=== PATIENT | male | born 1990 | race Caucasian/White ===

== ENCOUNTER 2018-08-02 12:43 | Emergency (ER) | payer MEDICAID ==
[~2018-08-02] VITALS: Ht 188 cm; Wt 84.1 kg
[2018-08-02] MEDS ORDERED: normal saline 1000ML IV soln IVB ONE (12:55)
[2018-08-02] MEDS ORDERED: TETanus/Pertussis (Acell)/Diphther VAC/PF (Tdap-Adult) 0.5ml syringe IM ONE (12:55)
[2018-08-02] MEDS ORDERED: HYDROcodone/acetaminophen 5mg/325mg tablet PO ONE (12:55)
[2018-08-02] MEDS ORDERED: LORazepam 2 mg/ml vial IV ONE (12:55)
[2018-08-02] MEDS ORDERED: ceFAZolin 1GM/D5W- ADD-VANTAGE 50 ML IV ONE (13:00)
[2018-08-02] MEDS ORDERED: ketamine 10mg/ml 20ml inj IV ONE (13:00)
[2018-08-02] MEDS ORDERED: LIDOcaine 1.5% w/epinephrine 1:200,000 5ml ampul IJ ONE (14:00)
[2018-08-02] MEDS ORDERED: ondansetron/PF 4mg/2ml inj IV ONE (14:00)
[2018-08-02 14:32] VITALS: BP 173/113
[2018-08-02] MEDS ORDERED: CEPH500C5 PO (15:09)
== END 2018-08-02 16:26 | disposition home or self-care (01) ==
LOC: ER 12:44
DX: S71.112A Laceration without foreign body, left thigh, initial encounter (principal); Z88.5 Allergy status to narcotic agent; W19.XXXA Unspecified fall, initial encounter; Y93.89 Activity, other specified; Y92.89 Other specified places as the place of occurrence of the external cause; Y99.9 Unspecified external cause status
CPT/HCPCS: 12034; 73560; 90471; 90715; 96365; 96375; 99284; J0690; J2060; J2405; J3490

== ENCOUNTER 2022-01-06 23:13 | Emergency (ER) | payer MEDICAID ==
[~2022-01-06] VITALS: Ht 188 cm; Wt 81.8 kg
[2022-01-06 23:38] LABS: BASOPHILS # (AUTO) 0.1 X10'3 (0-0.2); BASOPHILS % (AUTO) 1.1 % (0-1); EOSINOPHILS # (AUTO) 0.1 X10'3 (0-0.9); EOSINOPHILS % (AUTO) 0.7 % (0-6); HEMATOCRIT 42.8 % (42.0-52.0); HEMOGLOBIN 14.1 g/dl (14.0-17.9); LYMPHOCYTES # (AUTO) 3.8 X10'3 (1.1-4.8); LYMPHOCYTES % (AUTO) 36.4 % (21-51); MEAN CORPUSCULAR HGB CONC 32.9 g/dL (33.0-36.5); MEAN CORPUSCULAR VOLUME 82.1 FL (78-98); MEAN PLATELET VOLUME 7.2 FL (7.4-10.4); MONOCYTES # (AUTO) 1.1 X10'3 (0-0.9); MONOCYTES % (AUTO) 10.4 % (2-12); NEUTROPHILS # (AUTO) 5.3 X10'3 (1.8-7.7); NEUTROPHILS % (AUTO) 51.4 % (42-75); PLATELET COUNT 312 X10'3 (140-440); RED BLOOD COUNT 5.21 X10'6 (4.70-6.10); RED CELL DISTRIBUTION WIDTH 17.1 % (11.5-14.5); WHITE BLOOD COUNT 10.4 X10'3 (4.5-11.0)
[2022-01-06 23:52] LABS: ALANINE AMINOTRANSFERASE 41 U/L (12-78); ALBUMIN 4.1 G/DL (3.4-5.0); ALBUMIN/GLOBULIN RATIO 1.1 (1.1-1.5); ALKALINE PHOSPHATASE 127 IU/L (46-116); ANION GAP 12 (8-16); ASPARTATE AMINO TRANSFERASE 22 U/L (10-37); BILIRUBIN,TOTAL 0.3 MG/DL (0.1-1.0); BLOOD UREA NITROGEN 18 MG/DL (7-18); BUN/CREATININE RATIO 16.8 (5.4-32.0); CALCIUM 8.9 MG/DL (8.5-10.1); CHLORIDE 104 MMOL/L (99-107); CREATININE 1.07 MG/DL (0.60-1.10); ETHANOL 0.137 GM/DL (0.0-0.010); GLUCOSE 94 MG/DL (70-104); POTASSIUM 4.6 MMOL/L (3.5-5.1); SODIUM 142 MMOL/L (135-145); eGFR 81 ML/MIN
[2022-01-06 23:56] LABS: URINE AMPHETAMINE SCREEN NEGATIVE (Neg); URINE BARBITUATE SCREEN NEGATIVE (Neg); URINE BENZODIAZEPINES SCREEN NEGATIVE (Neg); URINE CANNABINOID SCREEN NEGATIVE (Neg); URINE COCAINE SCREEN NEGATIVE (Neg); URINE METHADONE SCREEN NEGATIVE (Neg); URINE OPIATE SCREEN NEGATIVE (Neg); URINE PHENCYCLIDINE SCREEN NEGATIVE (Neg)
[2022-01-07] MEDS ORDERED: CLON0.1T2 (00:02)
[2022-01-07] MEDS ORDERED: ATI1T (00:02)
[2022-01-07] MEDS ORDERED: QUET50TA24 PO (00:02)
[2022-01-07] MEDS ORDERED: MIRT-87 PO (00:02)
[2022-01-07] MEDS ORDERED: BUSP15TA7 PO (00:02)
[2022-01-07] MEDS ORDERED: HYDR-3686 PO (00:02)
[2022-01-07] MEDS ORDERED: BUPR1FIL20 SL (00:02)
[2022-01-07] MEDS ORDERED: LORazepam 1 MG tablet PO ONE (00:15)
--- NOTE | 2022-01-07 00:20 | NUR ---
Patient mother Glenys states that the patient has been sending threatening text from his apple watch to his girlfriend. Patient mother also states that the patient states that he is going to leave and that he is currently abusing his prescription medication. She states that she is fearful of him eloping and coming back home to hurt them and hisself. Patient mother states that he has attempted multiple times to commit suicide with his prescription medication and by hanging hisself.
[2022-01-07] MEDS ORDERED: CLON0.1T PO (01:19)
[2022-01-07] MEDS ORDERED: LORA-269 PO (01:24)
[2022-01-07] MEDS ORDERED: hydrOXYzine 25 MG tablet PO PRN (04:35)
--- NOTE | 2022-01-07 06:30 | NUR ---
PT. CARE ASSUMED FROM LEONID MCDONALD. PT. VISIBLE IN HALLWAY RESTING QUIETLY WITH EYES CLOSED.
[2022-01-07 07:07] LABS: CLARITY,URINE CLEAR (Clear); COLOR,URINE YELLOW (Yellow); GLUCOSE, URINE NEGATIVE (Neg); KETONES,URINE NEGATIVE (Neg); LEUKOCYTE ESTERASE ,URINE NEGATIVE (Neg); NITRITES, URINE NEGATIVE (Neg); OCCULT BLOOD,URINE MODERATE (Neg); PROTEIN,URINE NEGATIVE (Neg); UROBILINOGEN,URINE 0.2 E.U/dL (0.2-1.0)
[2022-01-07 07:17] LABS: UA COLLECTION TYPE CLN CATCH MIDSTREAM
[2022-01-07 07:19] LABS: SQUAMOUS EPITHELIAL CELL,UR FEW /LPF (FEW)
[2022-01-07 07:20] LABS: BACTERIA,URINE FEW /HPF (Neg); WBC,URINE 0-4 /HPF (0-4)
[2022-01-07] MEDS: buprenorphine/naloxone 8MG-2MG SUBlingual film SL SCH ×4 (08:18→20:41)
[2022-01-07] MEDS: busPIRone 15mg tablet PO SCH ×3 (08:18→20:40)
[2022-01-07] MEDS: LORazepam 1 MG tablet PO PRN (08:23)
--- NOTE | 2022-01-07 08:30 | NUR ---
PT. AAOX4 THIS SHIFT DENIES ANY CURRENT SI/HI OR HALLUCIANATIONS. PT. MEDICATION COMPLIANT WITH PRN OF ATIVAN GIVEN FOR INCREASED ANXIETY. PT. PRESENTS ANXIOUS AND COOPERATIVE WITH MORNING ASSESSMENT. DENIES ANY OTHER COMPLAINTS. COOPERATIVE WITH [facility]. STAFF WILL CONTINUE TO MONITOR FOR SAFETY.
[2022-01-07] MEDS: cloNIDine 0.1 mg tablet PO SCH ×2 (09:21→20:41)
--- NOTE | 2022-01-07 09:30 | NUR ---
THIS HYPO SPLASHER NOTICED PATIENT WITH APPLE WATCH ON AND PT. WAS TEXTING SOMEONE. THIS HYPO SPLASHER TOLD PATIENT HE COULD NOT HAVE ANY ELECTRONIC DEVICES ON THE UNIT AND HE WOULD NEED TO GIVE HIS WATCH TO STAFF TO LOCKUP. PT. WAS COMPLIANT WITH REQUEST. PT. BLACK APPLE WATCH PLACED WITH HIS PERSONAL BELONGINGS IN LOCKER #27. THIS HYPO SPLASHER WILL NOTE IT PERSONAL BELONGING SHEET.
--- NOTE | 2022-01-07 10:15 | NUR ---
spoke with dr. augustine in regards to suboxone order. received verbal to changed Addendum: 01/07/22 at 1016 by MELE received verbal order to change to timed admin.
[2022-01-07] MEDS ORDERED: nicotine 14mg patch - 24hr TD ONE (11:55)
--- NOTE | 2022-01-07 15:30 | NUR ---
PT. VISIBLE LYING ON BED IN HALLWAY RESTING QUIETLY WITH EYES CLOSED. NO DISTRESS NOTED. STAFF WILL CONTINUE TO MONITOR FOR SAFETY.
--- NOTE | 2022-01-07 17:51 | NUR ---
PT. WITH C/O FEELING LIKE HE HAVING WITHDRAWALS. PT. ASSESSED AND VITAL SIGNS TAKEN. THIS DIESEL TRUCK TECHNICIAN DISCUSSED MEDICATIONS, VITAL SIGNS AND UA TOXICOLOGY WITH DR. CAZARES. NO NEW MEDICATION ORDERS GIVEN. STAFF TO CONTINUE MONITORING FOR ANY CHANGES .
--- NOTE | 2022-01-07 18:35 | NUR ---
PATIENT RECEIVED ON THE UNIT IN NO OBVIOUS DISTRESS. NO PHYSICAL COMPLAINT MADE. PATIENT IS BREATHING SPONTANOUSLY ON ROOM AIR. PATIENT DENIES HAVING ANY SUICIDAL/HOMICIDAL IDEATION AT THIS TIME. PATIENT RATES HIS ANXIETY 5/10 AND DEPRESSION 4/10. OBSERVATION ONGOING.
[2022-01-07] MEDS ORDERED: mirtazapine 15mg tablet PO SCH (21:00)
[2022-01-07] MEDS ORDERED: QUEtiapine 25mg tablet PO SCH (21:00)
--- NOTE | 2022-01-08 05:07 | NUR ---
PATIENT SLEPT THROUGH OUT THE NIGHT. NO OBVIOUS DISTRESS NOTED. OBSERVATION ONGOING.
--- NOTE | 2022-01-08 06:30 | NUR ---
PT. CARE ASSUMED FROM JOSSIE MCDONALD. PT. VISIBLE WITH BED IN HALLWAY RESTING QUIETLY WITH EYES CLOSED NO DISTRESS NOTED.
[2022-01-08] MEDS: LORazepam 1 MG tablet PO PRN (08:27)
[2022-01-08] MEDS: cloNIDine 0.1 mg tablet PO SCH (08:27)
[2022-01-08] MEDS: busPIRone 15mg tablet PO SCH ×2 (08:27→12:54)
[2022-01-08] MEDS: buprenorphine/naloxone 8MG-2MG SUBlingual film SL SCH ×2 (08:28→12:54)
--- NOTE | 2022-01-08 12:45 | NUR ---
CALL RECEIVED FROM [facility] FROM [facility] THIS FORENSICS ANALYST PROVIDED MEDICAL HISTORY. [facility] STATES SHE WILL PRESENT PATIENT TO THE DOCTOR FOR POSSIBLE ACCEPTANCE TO FACILITY.
--- NOTE | 2022-01-08 13:56 | NUR ---
PT. ACCEPTED AT [facility] IN [place], [place] BY DR. GARCIA @[phone].
--- NOTE | 2022-01-08 14:02 | NUR ---
Collected 2nd covid swab per Karma's request. Pt tolerated procedure well.
--- NOTE | 2022-01-08 17:02 | NUR ---
PT. DISCHARGED TO [facility]. PT. ESCORTED OFF THE UNIT BY SECURITY OFFICERS AND TRANSPORTER. PT. REFUSED TO ALLOW STAFF TO REMOVE STRING FROM [facility] PRIOR TO TRANSPORT. PT. RECEIVED ALL PERSONAL BELONGINGS.
[2022-01-08 17:12] VITALS: BP 123/83
== END 2022-01-08 17:33 ==
LOC: ER 23:13
DX: R45.851 Suicidal ideations (principal); Z20.822 Contact with and (suspected) exposure to COVID-19; Z88.5 Allergy status to narcotic agent; Z79.899 Other long term (current) drug therapy
CPT/HCPCS: 36415; 80053; 80305; 80320; 81001; 84443; 85025; 87635; 99285; C9803; Q0177

== ENCOUNTER 2022-03-25 01:48 | Emergency (ER) | payer MEDICAID ==
[~2022-03-25] VITALS: Ht 180.3 cm; Wt 113.6 kg
[~2022-03-25 01:48] MED LIST: BUPR1FIL20 SL; BUSP15TA7 PO; CLON0.1T PO; HYDR-3686 PO; LORA-269 PO; MIRT-87 PO; QUET50TA24 PO
[2022-03-25 01:55] VITALS: BP 132/92
== END 2022-03-25 02:26 ==
LOC: ER 01:49
DX: Z02.89 Encounter for other administrative examinations (principal); M79.671 Pain in right foot; Z72.89 Other problems related to lifestyle; Z88.5 Allergy status to narcotic agent; Z79.899 Other long term (current) drug therapy
CPT/HCPCS: 99283

== ENCOUNTER 2025-06-18 17:03 | Emergency (ER) | payer MEDICAID ==
[~2025-06-18] VITALS: Ht 188 cm; Wt 200.0 kg
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
[2025-06-18 17:59] VITALS: BP 133/95; PULSE 121; RESP 16; TEMP 100.4; O2SAT 96
== END 2025-06-18 18:02 ==
LOC: ER 17:03
DX: T14.8XXA Other injury of unspecified body region, initial encounter (principal); Z88.5 Allergy status to narcotic agent; V89.2XXA Person injured in unspecified motor-vehicle accident, traffic, initial encounter; Y93.9 Activity, unspecified; Y92.89 Other specified places as the place of occurrence of the external cause; Y99.8 Other external cause status
CPT/HCPCS: 99283